=== PATIENT | female | born 1970 | race American Indian/Alaskan Native ===

== ENCOUNTER 2018-02-04 12:24 | Outpatient (CLI) | payer BC ==
--- NOTE | 2018-02-11 12:51 | Mammography Report ---
BILATERAL DIGITAL SCREENING MAMMOGRAM with CAD: 02/04/18 CLINICAL: Routine screening.Status post percutaneous needle biopsy of a benign right fibroadenoma 03/03/15 COMPARISON:A right mammogram after the ultrasound guided needle biopsy 03/03/15. No available left mammogram. However, a mammogram was apparently done at a [facility] in 2016.. FINDINGS: The breasts are heterogeneously dense, which may obscure small masses. The right fibroadenoma at 7 o'clock contains a biopsy clip is unchanged compared to the previous exam. However, there is a new right inner circumscribed mass or cyst. Circumscribed masses or cysts of the left breast require comparison with the prior mammogram or additional imaging. No architectural distortion or suspicious calcifications. IMPRESSION: Bilateral circumscribed masses or cysts requiring further evaluation. BI-RADS CATEGORY: 0 -- Additional Evaluation Required RECOMMENDATION: Comparison with a previous mammogram. Recommend bilateral breast ultrasound if a comparison bilateral mammogram cannot be obtained. We will attempt to obtain a prior mammogram for comparison. If we do not obtain a prior mammogram within 30 days, a revised report will be issued recommending a recall for additional imaging. Please be advised that the patient should not schedule an appointment for return until adequate time (at least 2 weeks) has passed for us to obtain the prior mammogram. ACR BI-RADS MAMMOGRAPHIC CODES: 0 = Needs additional imaging evaluation; 1 = Negative; 2 = Benign; 3 = Probably benign; 4 = Suspicious; 5 = Malignant; 6 = Known biopsy-proven malignancy COMMENT: 1. Dense breast tissue, i.e., adenosis, fibrocystic changes, etc., may obscure an underlying neoplasm. 2. Approximately 10% of cancers are not detected with mammography. 3. A negative mammography report should not delay biopsy if a clinically suspicious mass is present. COMMENT: Patient follow-up letters are generated via our [employer] application.
== END 2018-02-04 12:25 | disposition home or self-care (01) ==
LOC: SPVWC 12:24
PROVIDERS: ATTEND Obstetrics & Gynecology
DX: Z12.31 Encounter for screening mammogram for malignant neoplasm of breast (principal)
CPT/HCPCS: 77067

== ENCOUNTER 2018-02-25 14:25 | Outpatient (CLI) | payer BC ==
--- NOTE | 2018-02-25 16:35 | Mammography Report ---
BILATERAL DIGITAL DIAGNOSTIC MAMMOGRAM and BILATERAL BREAST ULTRASOUND: 02/25/18 14:25:00 CLINICAL: Recalled for bilateral asymmetries. COMPARISON:02/04/18 screening FINDINGS: Bilateral spot compression views demonstrate persistent bilateral asymmetries. Ultrasound of the right breast (including all four quadrants and the retroareolar area) was performed and demonstrated a benign cyst at 1 o'clock 6 cm from the nipple measuring 1.1 x 1.0 x 0.6 cm. It is anechoic and relatively smooth and correlates with the new mammographic asymmetry. A solid heterogeneous hypoechoic mass at 8 o'clock 6.5 cm from the nipple measures 0.8 x 0.7 x 1.0 cm and correlates with the mammographic mass with the biopsy clip. No other mass or cyst of the right breast identified. Ultrasound of the left breast (including all four quadrants and the retroareolar area) was performed and demonstrated several benign cysts and no solid mass or shadowing. A complex cyst subareolar at 12 o'clock measures 7 x 5 x 5 mm. A cyst at 2 o'clock 3 cm from nipple measures 7 x 5 x 7 mm and a cyst at 4 o'clock 6 cm from the nipple measures 1.0 x 0.9 x 0.8 cm. A cyst at 9 o'clock 5 cm from the nipple measures 4 x 3 x 4 mm. IMPRESSION: Bilateral benign cysts and a benign solid right breast mass at 8 o'clock with a biopsy clip. BI-RADS CATEGORY: 2 - - Benign RECOMMENDATION: Routine mammographic screening in one year. ACR BI-RADS MAMMOGRAPHIC CODES: 0 = Needs additional imaging evaluation; 1 = Negative; 2 = Benign; 3 = Probably benign; 4 = Suspicious; 5 = Malignant; 6 = Known biopsy-proven malignancy COMMENT: 1. Dense breast tissue, i.e., adenosis, fibrocystic changes, etc., may obscure an underlying neoplasm. 2. Approximately 10% of cancers are not detected with mammography. 3. A negative mammography report should not delay biopsy if a clinically suspicious mass is present. COMMENT: Patient follow-up letters are generated via our [employer] application.
== END 2018-02-25 14:26 | disposition home or self-care (01) ==
LOC: SPVWC 14:25
PROVIDERS: ATTEND Obstetrics & Gynecology
DX: N60.01 Solitary cyst of right breast (principal); N60.02 Solitary cyst of left breast
CPT/HCPCS: 77066

== ENCOUNTER 2020-06-16 07:54 | Day surgery (SDC) | payer BC, OTHER ==
[~2020-06-16 07:54] MED LIST: SODIUM CHLORIDE 0.9% 1000 ML 1,000 ML IV SCH
--- NOTE | 2020-06-16 08:26 | Anesthesia Consultation ---
Anesthesia Consult and Med Hx Date of service: 06/16/20 - Airway Anesthetic Teeth Evaluation: Good ROM Head & Neck: Adequate Mental/Hyoid Distance: Adequate Mallampati Class: Class II Intubation Access Assessment: Probably Good - Pre-Operative Health Status ASA Pre-Surgery Classification: ASA2 Proposed Anesthetic Plan: MAC - Endocrine Hx Insulin Dependent Diabetes: Yes
--- NOTE | 2020-06-16 08:26 | Anesthesia Day of Surgery ---
Anesthesia Day of Surgery - Day of Surgery Patient Examined: Yes Patient H&P Reviewed: Yes Patient is NPO: Yes
[2020-06-16] MEDS ORDERED: propofoL 200 MG/20 ML VIAL IV ONE ×2 (10:03→10:24)
[2020-06-16] MEDS ORDERED: LIDOCAINE MPF (2%) 20 MG/1 ML VIAL 5 ML ONE (10:09)
--- NOTE | 2020-06-16 10:39 | Procedure Note ---
Date of procedure: 06/16/20 Pre-op diagnosis: Colon Polyp Screening/ F/H/O Cancer (Lymphoma-father) Post-op diagnosis: other (No Colon Polyps noted/ Few,Left Diverticuli/ Mild to Moderate Internal Hemorrhoid) Procedure: Colonoscopy Anesthesia: MAC Surgeon: YOBANY KEY Estimated blood loss: none Pathology: none Specimen disposition: to lab Condition: stable Disposition: same day (Encourage fiber intake; otherwise resume home medication. Encourage use of OTC anti-hemorrhoidal medication. Follow up in 1 to 2 weeks ([phone]).)
--- NOTE | 2020-06-16 10:58 | Operative Report ---
PROCEDURE: Colonoscopy. INDICATIONS: This is a 49-year-old -[place] female with a family history of cancer. The patient's father had lymphoma. Colonoscopy was done because of her age as part of colon polyp screening. DESCRIPTION OF PROCEDURE: The procedure was done after getting informed consent with MAC anesthesia. Initial rectal exam was unremarkable. Instrument was passed through the rectum onto the cecum, which was identified with ileocecal valve and the appendiceal orifice. Visualization was fair to good. Cecum, ascending colon, transverse colon showed normal mucosa. There were a few diverticula noted in the left colon and the rectum showed mild to moderate internal hemorrhoid on the retroverted view. There were no biopsies done. No bleeding associated with the procedure. No complications associated with the procedure. No colon polyps noted. ASSESSMENT: Colon polyp screening, family history of cancer. The patient's father had lymphoma. No colon polyps noted. Few left colon diverticula and [id number] internal hemorrhoid. PLAN: To encourage the patient to take fiber supplements and resume home medication and follow up in the office in 1-2 weeks' time. The patient was done in the GI lab with assistance of the GI lab team, which included RN, Joslyn Jean; with Maurice thompson and with assistance of anesthesia. [facility]# [id number] TANMAY/DEMETRIA
--- NOTE | 2020-06-16 10:58 | Post Anesthesia Evaluation ---
- Post Anesthesia Evaluation Patient Participated: Yes Airway Patent: Yes Stable Respiratory Function: Yes Nausea/Vomiting: No Temp > 96.8F: Yes Pain Manageable: Yes Adequeate Hydration: Yes Anesthesia Complications: No
[2020-06-16 11:20] VITALS: BP 143/89
== END 2020-06-16 11:30 | disposition home or self-care (01) ==
LOC: GIO 07:54
DX: Z12.11 Encounter for screening for malignant neoplasm of colon (principal); K57.30 Diverticulosis of large intestine without perforation or abscess without bleeding; K64.8 Other hemorrhoids; E11.9 Type 2 diabetes mellitus without complications; Z79.899 Other long term (current) drug therapy; Z79.84 Long term (current) use of oral hypoglycemic drugs; Z80.0 Family history of malignant neoplasm of digestive organs; Z90.710 Acquired absence of both cervix and uterus; Z98.890 Other specified postprocedural states
CPT/HCPCS: 45378; 82962; J2704; J7030

== ENCOUNTER 2021-10-31 15:18 | Outpatient (CLI) | payer BC ==
--- NOTE | 2021-11-01 13:59 | Mammography Report ---
DIGITAL SCREENING MAMMOGRAM WITH CAD, 10/31/2021 CLINICAL INFORMATION / INDICATION: Routine screening mammography. SCREENING MAMMO Z12.31 TECHNIQUE: Digital bilateral 2D mammography was obtained in the craniocaudal and mediolateral obliqu e projections. This examination was interpreted with the benefit of Computer-Aided Detection analysis . COMPARISON: 07/04/2016 through 02/25/2018. FINDINGS: Breast Density: The breasts are heterogeneously dense, which may obscure small masses. No dominant mass, suspicious calcifications, or architectural distortion in either breast. There is a right biopsy clip inferiorly. Benign-appearing nodularity bilaterally has regressed. IMPRESSION: No mammographic evidence of malignancy. Follow up recommendation: Routine yearly BI-RADS Category 2: BENIGN. A "normal" or negative report should not discourage follow up or biopsy of a clinically significant f inding. A written summary of these findings will be mailed to the patient. The patient will be entered into a mammography reporting system which will generate a reminder letter for the patient's next appointmen t at the appropriate interval. The [employer] recommends yearly mammograms starting at age 40 and continuing as l angelica as a woman is in good health. Breast MRI is recommended for women with an approximate 20-25% or greater lifetime risk of breast cancer, including women with a strong family history of breast or ova trina cancer or who have been treated for Hodgkin's disease. Signer Name: Darren Terry MD Signed: 11/01/2021 1:55 PM Workstation Name: [id number]
== END 2021-10-31 15:19 | disposition home or self-care (01) ==
LOC: SPVWC 15:18
PROVIDERS: ATTEND Obstetrics & Gynecology
DX: Z12.31 Encounter for screening mammogram for malignant neoplasm of breast (principal); N64.89 Other specified disorders of breast
CPT/HCPCS: 77067